=== PATIENT | male | born 1950 | race Caucasian/White ===

== ENCOUNTER → 2018-05-19 | Outpatient (CLI) | payer MEDICARE ==
[~2018-05-19] MED LIST: 8HR ARTHRITIS650 M1 PO; ASPI81CH; Aspirin EC81 MG PO; CALCIUM PLUS PO; CHOL10002 PO; CYAN1000; FISH1000 PO; FLAX SEED OIL; Flax Oil1000 MG PO; Humalog100 UNIT/1 SC; IBUPROFEN PO; INSLI100I; INSULANI; INSULANPEN SC; LISI20; LISI20 PO; METFORMIN; MULTI VITAMIN1 EACH PO; MULVITMIND; Metformin HCl1000 MG PO; SIMVASTATIN; Simvastatin20 MG PO; VITAMIN B-121000 MCG PO; Vitamin D2000 UNIT PO
== END ==
LOC: LAB SHORT 04:00 → LAB 04:00 → LAB FUT 02-22 11:00
DX: E11.65 Type 2 diabetes mellitus with hyperglycemia (principal)
CPT/HCPCS: 82043

== ENCOUNTER 2018-06-15 06:31 | Day surgery (SDC) | payer MEDICARE ==
[~2018-06-15] VITALS: Ht 182.9 cm; Wt 117.1 kg
== END 2018-06-15 08:49 | disposition home or self-care (01) ==
LOC: ORSCSDS 06:31
PROVIDERS: Student in an Organized Health Care Education/Training Program
PROC: 0DJD8ZZ Inspection of Lower Intestinal Tract, Via Natural or Artificial Opening Endoscopic (ICD-10-PCS; principal; 2018-06-15 08:00)
DX: Z12.11 Encounter for screening for malignant neoplasm of colon (principal); K57.30 Diverticulosis of large intestine without perforation or abscess without bleeding; E11.9 Type 2 diabetes mellitus without complications; I10 Essential (primary) hypertension; E78.5 Hyperlipidemia, unspecified; Z79.82 Long term (current) use of aspirin; Z79.4 Long term (current) use of insulin; Z79.899 Other long term (current) drug therapy; Z87.891 Personal history of nicotine dependence
CPT/HCPCS: 82947; J0330; J0461; J1980; J2405; J2704; J7120

== ENCOUNTER → 2020-01-08 | Outpatient (CLI) | payer MEDICARE ==
[2020-01-10 13:34] LABS: CORONAVIRUS (COVID19) CSH-NRL Negative (Negative)
== END ==
LOC: LAB SHORT 18:46 → LAB 18:46
PROVIDERS: Physician Assistant
DX: Z20.828 Contact with and (suspected) exposure to other viral communicable diseases (principal)
CPT/HCPCS: U0003

== ENCOUNTER → 2023-06-27 | Outpatient (CLI) | payer MEDICARE | LOC: LAB SHORT 07:45 → LAB 07:45 | DX: C44.319 Basal cell carcinoma of skin of other parts of face (principal) | CPT/HCPCS: 88305 ==